=== PATIENT | female | born 1950 | race Caucasian/White ===

== ENCOUNTER 2016-12-18 09:10 | Outpatient (CLI) | payer BC, OTHER | END 2016-12-18 09:11 | disposition home or self-care (01) | DX: R73.9 Hyperglycemia, unspecified (principal) ==

== ENCOUNTER 2017-01-27 09:56 | Outpatient (CLI) | payer BC, OTHER | END 2017-01-27 09:57 | disposition home or self-care (01) | DX: Z12.31 Encounter for screening mammogram for malignant neoplasm of breast (principal) ==

== ENCOUNTER 2017-08-16 08:00 | Outpatient (CLI) | payer BC, OTHER ==
[2017-08-16 19:01] LABS: BILIRUBIN,URINE NEGATIVE (NEGATIVE)
[2017-08-16 19:12] LABS: UR CULTURE IF IND NOT INDICATED; WBC,URINE 0-3 /HPF (0-5)
== END 2017-08-16 08:01 | disposition home or self-care (01) ==
LOC: LAB.WCP 08:00
PROVIDERS: ATTEND Family Medicine
DX: R30.0 Dysuria (principal)
CPT/HCPCS: 81001; 87086

== ENCOUNTER 2017-08-25 10:30 | Outpatient (CLI) | payer BC ==
[2017-08-25 15:30] LABS: CALCIUM 9.6 mg/dL (8.5-10.3); CREATININE 0.6 mg/dL (0.4-1.0)
== END 2017-08-25 10:31 | disposition home or self-care (01) ==
LOC: LAB.WCP 10:30
PROVIDERS: ATTEND Family Medicine
DX: R30.0 Dysuria (principal)
CPT/HCPCS: 36415; 80048

== ENCOUNTER 2017-08-27 09:05 | Outpatient (CLI) | payer BC ==
[2017-08-27] MEDS ORDERED: IOPAMIDOL-300 100 ML VIAL ONE (10:23)
[2017-08-27] MEDS ORDERED: IOPAMIDOL-300 100 ML VIAL IVP ONE (10:45)
--- NOTE | 2017-08-28 22:32 | CT Report ---
EXAM: CT ABDOMEN AND PELVIS WITHOUT AND WITH CONTRAST (CT IVP) EXAM DATE: 08/27/2017 11:03 AM. CLINICAL HISTORY: DYSURIA. COMPARISONS: 08/09/2012. TECHNIQUE: Routine helical imaging was performed through the kidneys, ureters and bladder in the prec ontrast, postcontrast and delayed phase. IV Contrast: 100 cc Isovue-300. Reconstructions: Coronal and sagittal. In accordance with CT protocol optimization, one or more of the following dose reduction techniques w ere utilized for this exam: automated exposure control, adjustment of mA and/or KV based on patient s ize, or use of iterative reconstructive technique. FINDINGS: Lung Bases: Stable 3 mm pulmonary nodules within the left lower lobe. No acute pulmonary process. Right Kidney/Ureter: No stones, hydronephrosis, or masses. Left Kidney/Ureter: No stones, hydronephrosis, or masses. Other Solid Organs: The liver, spleen, pancreas, gallbladder, and adrenal glands are unremarkable.The bile ducts are unremarkable. Peritoneal Cavity/Bowel: No dilated or thick-walled bowel is seen. There is distal colon diverticulos is without evidence of diverticulitis. No enlarged mesenteric or retroperitoneal lymph nodes. Pelvic Organs: No bladder stones, obstruction or masses. The visualized pelvic organs are unremarkabl e. Vasculature: Normal. Bones: Normal. Other: None. IMPRESSION: Negative CT IVP. No urinary tract masses, stones or obstruction. [facility] Referring Provider Line: [phone] SITE ID: [id number]
== END 2017-08-27 09:06 | disposition home or self-care (01) ==
LOC: DI 09:05
PROVIDERS: ATTEND Family Medicine
DX: R30.0 Dysuria (principal)
CPT/HCPCS: 74178; Q9967

== ENCOUNTER 2018-05-29 09:59 | Outpatient (CLI) | payer BC ==
--- NOTE | 2018-05-30 14:02 | Mammography Report ---
Reason: SCREENING MAMMO Procedure Date: 05/29/2018 Accession Number: [id number] / [id number] Procedure: MGN - Screening Mammo Dig Bilat CPT Code: FULL RESULT: EXAM: Screening Mammo Dig Bilat DATE: 05/29/2018 10:21 AM CLINICAL HISTORY: 68-year-old female presents for screening mammogram. TECHNIQUE: Bilateral CC and MLO views were obtained. Left exaggerated CC view was also obtained. COMPARISON: 01/27/2017, 12/13/2014, 06/15/2013, 04/25/2012. FINDINGS: The breasts demonstrate heterogeneously dense fibroglandular parenchyma bilaterally. No suspicious masses, clustered microcalcifications, or regions of architectural distortion are identified. IMPRESSION: Negative examination RECOMMENDATION: Routine annual screening unless otherwise clinically indicated. BIRADS CATEGORY 1: Negative STANDARD QUALIFYING STATEMENTS: 1. This examination was not reviewed with the aid of Computer-Aided Detection (CAD). 2. A negative or benign imaging report should not delay biopsy if clinically suspicious findings are present. Consider surgical consultation if warrented. More than 5% of cancers are not identified by imaging. 3. Dense breasts may obscure an underlying neoplasm. 4. This examination was reviewed without the aid of 3D breast imaging (tomosynthesis).
== END 2018-05-29 10:00 | disposition home or self-care (01) ==
LOC: DI.N 09:59
PROVIDERS: ATTEND Radiology Diagnostic Radiology
DX: Z12.31 Encounter for screening mammogram for malignant neoplasm of breast (principal)
CPT/HCPCS: 77067

== ENCOUNTER 2019-11-09 07:53 | Emergency (ER) | payer BC ==
--- NOTE | 2019-11-09 08:12 | ED Physician Documentation ---
PD HPI UPPER EXT INJURY - Stated complaint Stated Complaint: LT SHOUDER,NECK PX - Chief complaint Chief Complaint: Ext Problem - History obtained from History obtained from: Patient - History of Present Illness Location: Left, Shoulder, Other (scapular area) Type of injury: Twist (She has not noticed a particular injury but states she does do a lot of arm repetitive motion, lifting, reaching at work. 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 She did not have any change in her activities but noticed onset of left shoulder and scapular pain to the side of the neck over the last couple of days. It is worse with range of motion of the neck and shoulder. There is no pain with breathing.) Where injury occurred: Home Timing - onset: Today Timing - duration: Minutes, Hours Timing - details: Abrupt onset, Still present Worsened by: Moving, Palpating Associated symptoms: No: Weakness, Numbness, Tingling, Swelling Similar symptoms before: Has not had sx before Review of Systems Constitutional: denies: Fever, Chills, Myalgias Nose: denies: Rhinorrhea / runny nose, Congestion Throat: denies: Sore throat Cardiac: denies: Chest pain / pressure, Palpitations Respiratory: denies: Dyspnea, Cough GI: denies: Abdominal Pain, Nausea, Vomiting Skin: denies: Rash, Lesions Musculoskeletal: reports: Neck pain, Back pain, Extremity pain (left scapular and posterior shoulder area.). 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 : None HEENT: None Psych: None Musculoskeletal: Osteoarthritis Derm: None - Past Surgical History Past Surgical History: Yes General: Cholecystectomy, Liver surgery - Present Medications Home Medications: Ambulatory Orders Medication Instructions Recorded Confirmed Arthritis Med Prn 0 01/01/13 01/01/13 Ibuprofen [Advil] 400 mg PO PRN 01/01/13 01/01/13 Sucralfate [Carafate] 1 gm PO TIDACHS #30 tablet 01/01/13 Hydrocodone/Acetaminophen [[place] 1 each PO Q6H PRN #15 tablet 11/09/19 5-325 Tablet] Naproxen 500 mg PO BID #20 tablet 11/09/19 - Allergies Allergies/Adverse Reactions: Allergies Allergy/AdvReac Type Severity Reaction Status Date / Time No Known Drug Allergies Allergy Verified 11/09/19 08:07 - Social History Does the pt smoke?: Yes Smoking Status: Current every day smoker Does the pt drink ETOH?: No Does the pt have substance abuse?: No - POLST Patient has POLST: No PD ED PE NORMAL - Vitals Vital signs reviewed: Yes - General General: Alert and oriented X 3, Well developed/nourished. No: No acute distress (appears in pain with ROM of the neck and left shoulder. ) - HEENT HEENT: Ears normal, Moist mucous membranes, Pharynx benign - Neck Neck: Supple, no meningeal sign, No bony TTP, No adenopathy - Cardiac Cardiac: RRR, No murmur - Respiratory Respiratory: Clear bilaterally - Abdomen Abdomen: Soft, Non tender - Derm Derm: Normal color, Warm and dry, No rash, Other - Extremities Extremities: No deformity, No tenderness to palpate - Neuro Neuro: Alert and oriented X 3, No motor deficit, Normal speech Eye Opening: Spontaneous Motor: Obeys Commands Verbal: Oriented GCS Score: 15 - Psych Psych: Normal mood Results - Vitals Vitals: Vital Signs - 24 hr 11/09/19 11/09/19 08:04 09:34 Temperature 36.8 C Heart Rate 67 87 Respiratory 16 16 Rate Blood Pressure 151/95 H 155/87 H O2 Saturation 100 98 Oxygen O2 Source Room air - Labs Labs: Laboratory Tests 11/09/19 11/09/19 08:45 08:45 Sodium 138 Potassium 3.6 Chloride 104 Carbon Dioxide 26 Anion Gap 8.0 BUN 11 Creatinine 0.5 Estimated GFR (MDRD) 123 Glucose 105 H Calcium 8.9 Total Bilirubin 0.5 AST 18 ALT 20 Alkaline Phosphatase 49 Troponin I High Sens 3.1 Total Protein 7.1 Albumin 3.7 Globulin 3.4 Albumin/Globulin Ratio 1.1 Lipase 29 PD MEDICAL DECISION MAKING - ED course Complexity details: reviewed results, re-evaluated patient, considered differential, d/w patient Departure - Departure Disposition: 01 Home, Self Care Clinical Impression: Pain of left scapula Condition: Stable Record reviewed to determine appropriate education?: Yes Instructions: ED Sprain Shoulder Follow-Up: Manjeet Samson MD [Primary Care Provider] - Prescriptions: Hydrocodone/Acetaminophen [[place] 5-325 Tablet] 1 each PO Q6H PRN #15 tablet PRN Reason: Pain Naproxen 500 mg PO BID #20 tablet Comments: Heat and gentle range of motion and exercise for the left shoulder and shoulder blade area. At this point we will presume it some muscle irritation and treated with naproxen anti-inflammatory. To that add Tylenol or hydrocodone if needed for pains. Off work for 4 to 5 days to minimize the amount of lifting and motion and allow the muscles to improve. Recheck or follow-up with your primary if is not better over 4 to 5 days or if you develop other symptoms such as rash, fevers, cough or trouble breathing or other concerns. Forms: Activity restrictions Discharge Date/Time: 11/09/19 09:37
[2019-11-09] MEDS ORDERED: ACETAMINOPHEN 325 MG TABLET PO STA (08:37)
[2019-11-09] MEDS ORDERED: NAPROXEN 250 MG TABLET PO STA (08:37)
[2019-11-09 09:10] LABS: ALBUMIN 3.7 g/dL (3.2-5.5); ALBUMIN/GLOBULIN RATIO 1.1 (1.0-2.2); BILIRUBIN,TOTAL 0.5 mg/dL (0.2-1.0); CALCIUM 8.9 mg/dL (8.5-10.3); CREATININE 0.5 mg/dL (0.4-1.0); TOTAL PROTEIN 7.1 g/dL (6.7-8.2)
[2019-11-09 09:35] VITALS: BP 155/87
== END 2019-11-09 09:37 | disposition home or self-care (01) ==
LOC: ED 07:53
DX: M25.512 Pain in left shoulder (principal); M54.2 Cervicalgia; X50.3XXA Overexertion from repetitive movements, initial encounter; Y93.89 Activity, other specified; Y92.63 Factory as the place of occurrence of the external cause; Y99.0 Civilian activity done for income or pay; F17.200 Nicotine dependence, unspecified, uncomplicated
CPT/HCPCS: 36415; 80053; 83690; 84484; 93005; 99283; 99284; A9270

== ENCOUNTER 2021-01-20 10:42 | Outpatient (CLI) | payer MEDICARE, OTHER ==
[2021-01-20] MEDS ORDERED: IOPAMIDOL-300 50 ML VIAL ONE (10:51)
[2021-01-20] MEDS ORDERED: IOVERSOL 320 100 ML VIAL IVP ONE ×2 (10:51→13:03)
[2021-01-20 12:13] LABS: BASOPHILS % (AUTO) 0.7 %; EOSINOPHILS # (AUTO) 0.6 10^3/uL (0.0-0.7); EOSINOPHILS % (AUTO) 9.5 %; HCT - HEMATOCRIT 44.8 % (37.0-47.0); HGB - HEMOGLOBIN 14.8 g/dL (12.0-16.0); LYMPHOCYTES # (AUTO) 1.8 10^3/uL (1.5-3.5); LYMPHOCYTES % (AUTO) 30.7 %; MEAN CORPUSCULAR HEMOGLOBIN 32.1 pg (27.0-31.0); MEAN CORPUSCULAR VOLUME 97.2 fL (81.0-99.0); MEAN PLATELET VOLUME 9.1 fL (7.9-10.8); MONOCYTES # (AUTO) 0.5 10^3/uL (0.0-1.0); MONOCYTES % (AUTO) 8.3 %; NEUTROPHILS # (AUTO) 2.9 10^3/uL (1.5-6.6); NEUTROPHILS % (AUTO) 50.6 %; PLT - PLATELET COUNT 299 10^3/uL (130-450); RED BLOOD COUNT 4.61 10^6/uL (4.20-5.40); RED CELL DISTRIBUTION WIDTH 12.6 % (12.0-15.0); WHITE BLOOD COUNT 5.8 x10^3/uL (4.8-10.8)
[2021-01-20 12:28] LABS: ALBUMIN 4.3 g/dL (3.2-5.5); ALBUMIN/GLOBULIN RATIO 1.3 (1.0-2.2); BILIRUBIN,TOTAL 0.5 mg/dL (0.2-1.0); CALCIUM 9.8 mg/dL (8.5-10.3); CREATININE 0.7 mg/dL (0.4-1.0); POTASSIUM 3.7 mmol/L (3.5-5.0); TOTAL PROTEIN 7.6 g/dL (6.7-8.2)
[2021-01-20 13:00] LABS: CREATININE,URINE < 13.0 mg/dL; MICROALBUMIN,URINE < 0.2 mg/dL (0-300.0)
[2021-01-20] MEDS ORDERED: IOPAMIDOL-300 50 ML VIAL PO ONE (13:03)
--- NOTE | 2021-01-20 17:26 | CT Report ---
PROCEDURE: Abdomen/Pelvis W INDICATIONS: ABN PAIN COLIC CONTRAST: IV CONTRAST: Optiray 320 ml: 80 PO CONTRAST: Isovue 300 ml50 TECHNIQUE: After the administration of IV and oral contrast, 5 mm thick sections acquired from the diaphragms to the symphysis. 5 mm thick coronal and sagittal reformats were acquired. For radiation dose reducti on, the following was used: automated exposure control, adjustment of mA and/or kV according to kyrie ent size. COMPARISON: 08/09/2012 FINDINGS: Image quality: Excellent. ABDOMEN: Lung bases: Lung bases are clear. Heart size is enlarged. Solid organs: The left lobe liver is surgically absent. There is mild diffuse biliary dilatation. The gallbladder is surgically absent. No right lobe liver lesion. The spleen is diminutive in size but o therwise normal in morphology. Pancreas enhances normally. No adrenal nodules. Kidneys demonstrate normal size and enhancement, without hydronephrosis. Peritoneum and bowel: Ascending and descending colon diverticulosis. Normal appendix. The sigmoid co emeterio is redundant and there is diverticulosis of the proximal portion. The rectum is normal. Small bow el is not obstructed. The stomach is decompressed. Bowel loops demonstrate normal wall thickness and caliber. No free fluid or air. Nodes and vessels: No retroperitoneal or mesenteric adenopathy by size criteria. Aorta and inferior vena cava are normal in size. Miscellaneous: A very tiny fat-containing epigastric midline ventral hernia. PELVIS: Genitourinary: Bladder wall thickness is normal. The uterus is normal. Miscellaneous: No inguinal hernias or adenopathy. Bones: No suspicious bony lesions. Left femur and right iliac bone islands. No vertebral body compr ession fractures. IMPRESSION: 1. No acute process. 2. Ascending and descending colon diverticulosis without acute diverticulitis. 3. Partial hepatectomy and cholecystectomy. 4. Mild cardiomegaly. Reviewed by: Althea Weinstein MD on 01/20/2021 5:25 PM PDT Approved by: Althea Weinstein MD on 01/20/2021 5:25 PM PDT Station ID: [id number]
== END 2021-01-20 10:43 | disposition home or self-care (01) ==
LOC: LAB 10:42
PROVIDERS: ATTEND Internal Medicine
DX: K57.30 Diverticulosis of large intestine without perforation or abscess without bleeding (principal); Z90.49 Acquired absence of other specified parts of digestive tract; I51.7 Cardiomegaly; R10.84 Generalized abdominal pain; R73.9 Hyperglycemia, unspecified
CPT/HCPCS: 36415; 74177; 80053; 82043; 82570; 85025; Q9967

== ENCOUNTER 2021-03-03 10:38 | Outpatient (CLI) | payer MEDICARE, OTHER ==
[2021-03-03 10:55] LABS: BILIRUBIN,URINE NEGATIVE (NEGATIVE); GLUCOSE, URINE (UA) NEGATIVE (NEGATIVE); KETONES,URINE (UA) NEGATIVE (NEGATIVE); LEUKOCYTE ESTERASE, URINE NEGATIVE (NEGATIVE); NITRITE,URINE NEGATIVE (NEGATIVE); OCCULT BLOOD,URINE SMALL (NEGATIVE); PROTEIN,URINE NEGATIVE (NEGATIVE); UROBILINOGEN,URINE 0.2 (NORMAL) E.U./dL (NORMAL)
[2021-03-03 10:57] LABS: BACTERIA,URINE None Seen /HPF (None Seen); CLARITY,URINE CLEAR (CLEAR); RBC,URINE 0-5 /HPF (0-5); SQUAMOUS EPITHELIAL CELL,UR RARE Squamous (<= Few); WBC,URINE 0-3 /HPF (0-5)
[2021-03-03 10:58] LABS: BASOPHILS % (AUTO) 0.7 %; EOSINOPHILS # (AUTO) 0.4 10^3/uL (0.0-0.7); EOSINOPHILS % (AUTO) 7.9 %; HCT - HEMATOCRIT 45.9 % (37.0-47.0); HGB - HEMOGLOBIN 15.3 g/dL (12.0-16.0); LYMPHOCYTES # (AUTO) 1.3 10^3/uL (1.5-3.5); LYMPHOCYTES % (AUTO) 23.4 %; MEAN CORPUSCULAR HGB CONC 33.3 g/dL (32.0-36.0); MONOCYTES # (AUTO) 0.5 10^3/uL (0.0-1.0); MONOCYTES % (AUTO) 8.8 %; NEUTROPHILS # (AUTO) 3.3 10^3/uL (1.5-6.6); PLT - PLATELET COUNT 266 10^3/uL (130-450); RED BLOOD COUNT 4.78 10^6/uL (4.20-5.40); RED CELL DISTRIBUTION WIDTH 12.6 % (12.0-15.0); WHITE BLOOD COUNT 5.6 x10^3/uL (4.8-10.8)
[2021-03-03 11:14] LABS: CREATININE,URINE 30.3 mg/dL; MICROALBUM/CREATININE RATIO,UR 9.9 ug/mg (<30.0); MICROALBUMIN,URINE 0.3 mg/dL (0-300.0)
[2021-03-03 11:20] LABS: ALBUMIN 4.4 g/dL (3.2-5.5); ALBUMIN/GLOBULIN RATIO 1.4 (1.0-2.2); ALKALINE PHOSPHATASE 53 IU/L (42-121); ALT ALANINE AMINOTRANSFERASE 22 IU/L (10-60); AST ASPARTATE AMINOTRANSFERASE 18 IU/L (10-42); BILIRUBIN,TOTAL 0.9 mg/dL (0.2-1.0); BUN - BLOOD UREA NITROGEN 17 mg/dL (6-20); CALCIUM 9.1 mg/dL (8.5-10.3); CARBON DIOXIDE - CO2 29 mmol/L (21-32); CHLORIDE 100 mmol/L (101-111); CHOL/HDL RATIO 4.1 (<4.4); CHOLESTEROL 260 mg/dL; CREATININE 0.7 mg/dL (0.4-1.0); GFR - MDRD 83 (>89); GLUCOSE 128 mg/dL (70-100); HDL CHOLESTEROL 63 mg/dL; LDL CHOLESTEROL,CALCULATED 175 mg/dL; LDL/HDL RATIO 2.8 (<4.4); LIPASE 32 U/L (22-51); POTASSIUM 3.8 mmol/L (3.5-5.0); SODIUM 137 mmol/L (135-145); TOTAL PROTEIN 7.6 g/dL (6.7-8.2); TRIGLYCERIDES 109 mg/dL; VLDL CHOLESTEROL 22 mg/dL
[2021-03-03 11:28] LABS: THYROID STIMULATING HORMONE 0.59 uIU/mL (0.34-5.60)
[2021-03-03 13:00] LABS: ESTIMATED AVERAGE GLUCOSE 128 mg/dL (70-100); HEMOGLOBIN A1c% 6.1 % (4.27-6.07)
== END 2021-03-03 10:39 | disposition home or self-care (01) ==
LOC: LAB 10:38
PROVIDERS: ATTEND Internal Medicine
DX: R10.84 Generalized abdominal pain (principal); Z13.220 Encounter for screening for lipoid disorders; R30.0 Dysuria; R73.9 Hyperglycemia, unspecified; E78.5 Hyperlipidemia, unspecified
CPT/HCPCS: 36415; 80053; 80061; 81001; 82043; 82570; 83036; 83690; 83721; 84443; 85025; 87086

== ENCOUNTER 2021-03-27 06:46 | Day surgery (SDC) | payer MEDICARE, OTHER ==
[2021-03-27] MEDS ORDERED: LACTATED RINGERS 1,000 ML IV ONE ×2 (07:03→09:12)
[2021-03-27] MEDS ORDERED: fentaNYL 100 MCG/2 ML VIAL ONE ×2 (08:14→08:46)
[2021-03-27] MEDS ORDERED: MIDAZOLAM 2 MG/2 ML VIAL ONE ×3 (08:14→08:54)
--- NOTE | 2021-03-27 08:19 | HISTORY & PHYSICAL EXAMINATION ---
Chief Complaint - Chief Complaint Chief Complaint: history abdominal discomfort History of Present Illness - History Obtained From Records Reviewed: yes History obtained from: pt Exam Limitations: none - History of Present Illness HPI Comment/Other: History of abdominal pain. Last colon cancer screening nearly 10 years ago. Her pain is improved. ct scan diverticulosis. 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 : reports: None HEENT: reports: None Psych: reports: None Musculoskeletal: reports: Osteoarthritis Derm: reports: None MRSA Hx?: No - Past Surgical History General: reports: Cholecystectomy, Liver surgery - POLST Patient has POLST: No Meds/Allgy - Home Medications Home Medications: Ambulatory Orders Medication Instructions Recorded Confirmed Arthritis Med Prn 0 01/01/13 01/01/13 Ibuprofen [Advil] 400 mg PO PRN 01/01/13 01/01/13 Gabapentin [Neurontin] 900 mg PO HS 03/26/21 03/26/21 Nabumetone 750 mg PO BID PRN 03/26/21 03/26/21 - Allergies Allergies/Adverse Reactions: Allergies Allergy/AdvReac Type Severity Reaction Status Date / Time No Known Drug Allergies Allergy Verified 03/26/21 13:42 Review of Systems - Constitutional Constitutional: reports: Fatigue (10 pt ros as above otherwise unremarkable) Exam - Vital Signs Reviewed Vital Signs: Yes Vital Signs: Vital Signs x48h Temp Pulse Resp BP Pulse Ox 03/27/21 07:10 36.0 C L 77 16 116/89 H 100 - Physical Exam General Appearance: positive: No acute distress, Alert Eyes Bilateral: positive: PERRL, EOMI ENT: positive: No signs of dehydration Neck: positive: No JVD Respiratory: positive: No respiratory distress, Breath sounds nml Cardiovascular: positive: Regular rate & rhythm Abdomen: positive: Non-tender, No distention Neurologic/Psychiatric: positive: Oriented x3 Conclusion/Plan - Problem List (1) Colon cancer screening Conclusion/Plan: plan colonoscopy. parq held and consent obtained
[2021-03-27 09:29] VITALS: BP 106/78
== END 2021-03-27 06:47 | disposition home or self-care (01) ==
LOC: SDS 06:46
PROVIDERS: ATTEND Surgery
PROC: 0DBP8ZZ Excision of Rectum, Via Natural or Artificial Opening Endoscopic (ICD-10-PCS; principal; 2021-03-27 08:30)
DX: Z12.11 Encounter for screening for malignant neoplasm of colon (principal); K62.1 Rectal polyp; K57.30 Diverticulosis of large intestine without perforation or abscess without bleeding
CPT/HCPCS: 45380; J7120

== ENCOUNTER 2023-02-15 13:22 | Outpatient (CLI) | payer MEDICARE, OTHER ==
--- NOTE | 2023-02-15 14:55 | Ultrasound Report ---
PROCEDURE: Pelvic w/Transvaginal INDICATIONS: LOWER ABD PAIN TECHNIQUE: Real-time scanning was performed of the pelvic organs, with image documentation. Additional endovagi nal scanning was necessary due to incomplete visualization of the adnexal and endometrial structures by transabdominal scanning. COMPARISON: None. FINDINGS: Uterus: 6 x 1.9 x 3.4 cm. Endometrium measures 4 mm, within normal limits. Ovaries: Right ovary is not well seen. Left ovary is nonenlarged, measuring a volume of 1 cc. Other: No pathologic free fluid. IMPRESSION: No acute sonographic abnormality. Limited examination due to patient discomfort. Right ovary was not seen. Reviewed by: Charanjit Gifford MD on 02/15/2023 2:54 PM PDT Approved by: Charanjit Gifford MD on 02/15/2023 2:54 PM PDT Station ID: [id number]
== END 2023-02-15 13:23 | disposition home or self-care (01) ==
LOC: DI 13:22
PROVIDERS: ATTEND Internal Medicine
DX: R10.30 Lower abdominal pain, unspecified (principal)

== ENCOUNTER 2023-02-15 13:22 | Outpatient (CLI) | payer MEDICARE, OTHER ==
--- NOTE | 2023-02-16 09:19 | Mammography Report ---
BILATERAL DIGITAL SCREENING MAMMOGRAM 3D/2D: 02/15/2023 CLINICAL: Routine screening. Comparison is made to exams dated: 01/27/2017 mammogram, 12/13/2014 mammogram, and 06/15/2013 mammogram - [facility]. There are scattered areas of fibroglandular density in both breasts (category b / 25%-50% glandular t issue). No significant masses, calcifications, or other findings are seen in either breast. There has been no significant interval change. IMPRESSION: NEGATIVE There is no mammographic evidence of malignancy. A 1 year screening mammogram is recommended. Based on the Tyrer Cuzick model (a risk assessment model) the patients lifetime risk is 3.4% and her 10 year risk is 2.3%. According to the ACR, ACS, and NCCN guidelines, an annual breast MRI exam michael g with mammogram is recommended if the patients lifetime risk is 20% or greater. This exam was interpreted at Station ID: [id number]. NOTE: For mammograms, a report in lay terms will be sent to the patient. Approximately 15% of breast malignancies will not be visualized mammographically. In the management of a palpable breast mass, a negative mammogram must not discourage biopsy of a clinically suspicious lesion. Electronically Signed By: You baeza/ni:02/15/2023 16:39:38 letter sent: No_Letter ACR BI-RADS Category 1: Negative 3341F PARENCHYMAL PATTERN: (A) - The breast(s) demonstrate(s) scattered fibroglandular densities. BI-RADS CATEGORY: (1) - 1 Mammogram [id number] 1 year screening LATERALITY: (B)
== END 2023-02-15 13:23 | disposition home or self-care (01) ==
LOC: DI 13:22
PROVIDERS: ATTEND Internal Medicine
DX: Z12.31 Encounter for screening mammogram for malignant neoplasm of breast (principal)

== ENCOUNTER 2023-02-15 13:23 | Outpatient (CLI) | payer MEDICARE, OTHER ==
--- NOTE | 2023-02-15 16:30 | DEXA Report ---
PROCEDURE: Dexa Spine and/or Hip INDICATIONS: POST MENOPAUSAL TECHNIQUE: Dual energy x-ray absorptiometry (DXA) was performed on a [employer] System. Regions measur ed are the AP Spine, femoral neck, and if needed forearm. COMPARISON: None FINDINGS: Lumbar Spine: Bone Mineral Density 0.73 g/cm/cm,T score -3.8. Left Femoral Neck: Bone Mineral Density 0.78 g/cm/cm, T score -1.9. Left Hip: Bone Mineral Density 0.90 g/cm/cm,T score -0.9. (T score greater or equal to -1.0: NORMAL) (T score from -1.1 to -2.4: OSTEOPENIA) (T score less than or equal to -2.5 to: OSTEOPOROSIS) Impression: By WHO criteria, this patient has osteoporosis. Fracture risk is increased. Patients with diagnosis of osteoporosis or osteopenia should have regular bone mineral density assess ment. For those eligible for Medicare, routine testing is allowed once every 2 years. Testing frequ ency can be increased for patients who have rapidly progressing disease or for those who are receivin g medical therapy to restore bone mass. Reviewed by: Charanjit Gifford MD on 02/15/2023 4:29 PM PDT Approved by: Charanjit Gifford MD on 02/15/2023 4:29 PM PDT Station ID: [id number]
== END 2023-02-15 13:24 | disposition home or self-care (01) ==
LOC: DI 13:23
PROVIDERS: ATTEND Internal Medicine
DX: Z78.0 Asymptomatic menopausal state (principal); M81.0 Age-related osteoporosis without current pathological fracture

== ENCOUNTER 2024-02-22 11:04 | Outpatient (CLI) | payer MEDICARE, OTHER ==
--- NOTE | 2024-02-23 08:43 | Mammography Report ---
BILATERAL DIGITAL SCREENING MAMMOGRAM 3D/2D: 02/22/2024 CLINICAL: Routine screening. Comparison is made to exams dated: 02/15/2023 mammogram, 01/27/2017 mammogram, 12/13/2014 mammogram, mammogram, 04/25/2012 mammogram, and 11/18/2010 mammogram - [facility]. Both breasts are heterogeneously dense, which may obscure small masses (category c / 51-75% glandular tissue). No significant masses, calcifications, or other findings are seen in either breast. There has been no significant interval change. IMPRESSION: NEGATIVE There is no mammographic evidence of malignancy. A 1 year screening mammogram is recommended. Based on the Tyrer Cuzick model (a risk assessment model) the patient's lifetime risk is 4.8% and her 10 year risk is 3.6%. According to the ACR, ACS, and NCCN guidelines, an annual breast MRI exam michael g with mammogram is recommended if the patient's lifetime risk is 20% or greater. This exam was interpreted at Station ID: [id number]. NOTE: For mammograms, a report in lay terms will be sent to the patient. Approximately 15% of breast malignancies will not be visualized mammographically. In the management of a palpable breast mass, a negative mammogram must not discourage biopsy of a clinically suspicious lesion. Electronically Signed By: Charanjit cleary/ni:02/22/2024 11:54:56 letter sent: No_Letter ACR BI-RADS Category 1: Negative 3341F PARENCHYMAL PATTERN: (D) - The breast(s) demonstrate(s) heterogeneously dense fibroglandular jeanne galvan. BI-RADS CATEGORY: (1) - 1 RECOMMENDATION: (ANNUAL) - Recommend routine annual screening mammography. [id number] 1 year screening LATERALITY: (B)
== END 2024-02-22 11:05 | disposition home or self-care (01) ==
LOC: DI.N 11:04
DX: Z12.31 Encounter for screening mammogram for malignant neoplasm of breast (principal); R92.333 Mammographic heterogeneous density, bilateral breasts